=== PATIENT | male | born 2000 | race Caucasian/White ===

== ENCOUNTER 2024-09-17 12:12 | Emergency (ER) | payer OTHER, SELFPAY ==
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
[2024-09-17 12:26] VITALS: BP 127/66; PULSE 61; RESP 16; TEMP 36.7; O2SAT 98
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
== END 2024-09-17 13:49 | disposition home or self-care (01) ==
PROVIDERS: Emergency Provider Nurse Practitioner Family; PCP Internal Medicine
DX: S63.501A Unspecified sprain of right wrist, initial encounter (principal); V49.40XA Driver injured in collision with unspecified motor vehicles in traffic accident, initial encounter; M54.2 Cervicalgia
CPT/HCPCS: 72040; 73110; 99214; G0463

== ENCOUNTER 2024-09-28 17:04 | Emergency (ER) | payer SELFPAY ==
[2024-09-28 17:14] VITALS: BP 113/77; PULSE 75; RESP 16; TEMP 36.8; O2SAT 100
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
== END 2024-09-28 17:41 | disposition home or self-care (01) ==
PROVIDERS: Emergency Provider Nurse Practitioner Family; PCP Internal Medicine
DX: S63.501A Unspecified sprain of right wrist, initial encounter (principal); V89.2XXA Person injured in unspecified motor-vehicle accident, traffic, initial encounter
CPT/HCPCS: 99211; G0463